=== PATIENT | male | born 1960 | race Caucasian/White ===

== ENCOUNTER 2021-05-05 03:41 | Emergency (ER) | payer OTHER | END 2021-05-05 05:24 | disposition home or self-care (01) | LOC: FER 03:41 | DX: M25.562 Pain in left knee (principal); J45.909 Unspecified asthma, uncomplicated; X50.1XXA Overexertion from prolonged static or awkward postures, initial encounter; Y92.89 Other specified places as the place of occurrence of the external cause; Y99.0 Civilian activity done for income or pay | CPT/HCPCS: 73560; J1885 ==